=== PATIENT | female | born 1965 | race Caucasian/White ===

== ENCOUNTER → 2021-11-15 14:13 | Outpatient (BNVA) | payer SELFPAY | PROVIDERS: Visit Provider Nurse Practitioner Family | DX: M54.50 Low back pain, unspecified (principal); M54.9 Dorsalgia, unspecified; R10.9 Unspecified abdominal pain | CPT/HCPCS: 81000 ==

== ENCOUNTER 2021-11-16 13:09 | Outpatient (CLI) | payer BC, SELFPAY ==
--- NOTE | 2021-11-16 13:45 | US_ITS ---
WS: [id number] RENAL ULTRASOUND HISTORY: R10.9 - Unspecified abdominal pain COMPARISON: None available. TECHNIQUE: 2-D and color Doppler imaging of the kidney submitted. Right kidney: 10.3 cm x 4.4 cm x 3.8 cm. Normal echogenicity with no hydronephrosis or mass. Left kidney: 10.5 cm x 4.2 cm x 4.7 cm. Normal echogenicity with no hydronephrosis or mass. Aorta: Normal. Urinary Bladder: Normal distention. US/US renal BI* [id number] IMPRESSION: Normal renal ultrasound.
== END 2021-11-16 13:10 | disposition home or self-care (01) ==
LOC: RAD 13:09
PROVIDERS: Visit Provider Nurse Practitioner Family
DX: R10.9 Unspecified abdominal pain (principal)
CPT/HCPCS: 76770